=== PATIENT | female | born 1980 | race Caucasian/White ===

== ENCOUNTER 2017-03-03 08:54 | Emergency (ER) | payer MEDICAID ==
--- NOTE | 2017-03-03 10:12 | ED Physician Chart ---
Chief Complaint/HPI - Patient Information Date Seen:: 03/03/17 Time Seen:: 10:07 Chief Complaint:: ABD PAIN INTERMITTANT SINCE MAY 2016 History of Present Illness:: This 36-year-old female presents with pain in the left lower quadrant that has been there since May 2016. currently, she rates the pain as an 8/10 severity. The pain is worse with movement and walking. In May 2016 she had an ultrasound of the abdomen and pelvis that showed a large mass in the left pelvic region. The ultrasound report shows that the mass measured 8.4 x 6.7 cm and was adherent or adjacent to her uterus. The report notes that the mass could be malignant and it urged close follow-up. The patient denies any associated nausea, vomiting or diarrhea. She has no fever, chills, dysuria or urinary frequency. She has had intermittent vaginal bleeding that is sometimes heavy. The study was done at [facility] and her accompanying paperwork notes that her next appointment is scheduled for June 2017. The patient has [employer] insurance and she is not being followed by any primary care physician or shop mechanic. Allergies:: Allergies Allergy/AdvReac Type Severity Reaction Status Date / Time No Known Allergies Allergy Verified 03/03/17 09:14 Vitals:: Vital Signs - 8 hr 03/03/17 09:05 Temp 98.6 F HR 67 RR 16 BP 147/85 O2 Sat % 100 Review of Systems - Review of Systems General/Constitutional: No fever, No chills, No weight loss, No weakness, No diaphoresis, No edema Skin: No skin lesions, No rash Head: No headache, No light-headedness Eyes: No loss of vision, No pain ENT: No earache, No sore throat, No tinnitus Neck: No neck pain, No stiffness, No mass noted Cardio Vascular: No chest pain, No edema GI: No nausea, No vomiting, No diarrhea, Pain G/U: No dysuria, No frequency, 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 Musculoskeletal: Bone or joint pain, Back pain Endocrine: No polyuria, No polydipsia Psychiatric: Prior psych history Hematopoietic: No bruising, No lymphadenopathy Allergic/Immuno: No urticaria, No angioedema Neurological: No syncope, No paresthesia, No seizure, No vertigo Past Medical History - Past Medical History Past Medical History: Other ( The patient denies any other medical problems such as diabetes, hypertension, asthma, or seizure disorder.) Social History: Non Smoker, No Alcohol, No Drug Use, Other ( Lives with her family.) Surgical History: None Psychiatricy History: None Family Medical History - Family Member Mother Other Medical History: denies family medical history Physical Exam - Physical Examination General/Constitutional: Awake, Well-developed, well-nourished, Alert Other Gen/Cons comments:: The patient appeared to be in mild to moderate distress from her complained of abdominal pain. Head: Atraumatic Eyes: Lids, conjuctiva normal, PERRL, EOMI Other Eyes comments:: No jaundice. Skin: Nl inspection, No rash, No ecchymosis Other Skin comments:: No surgical scars on the abdomen. ENMT: External ears, nose nl, Nasal exam nl, Lips, teeth, gums nl, Oropharynx nl , Tonsils nl Neck: Nontender, No nuchal rigidity, No mass Respiratory: Nl effort/Exclusion, Clear to Auscultation, No Wheeze/Rhonchi/Rales Cardio Vascular: RRR, No murmur, gallop, rubs ( Adequate pulses in all four extremities.) Other GI comments:: The abdomen is flat and nondistended. Bowel sounds are normal. On palpation there was a fullness in the left lower quadrant which is accompanied by moderate tenderness to palpation. The patient had no rebound regarding. No pulsatile masses. No hernias. : No CVA tenderness Extremities: No tenderness or effusion, normal strength in all extremities, No edema Neuro/Psych: Alert/oriented, Normal sensory exam, Normal motor strength, Judgement/insight normal, No focal deficits Misc: Normal back, No paraspinal tenderness Labs/Radiology/EKG Results - Lab Results Results: Alter sound of the abdomen and pelvis confirm the presence of a large mass in the left pelvic region. The mass was essentially the same dimensions as noted on the prior report. In addition there was a left ovarian cyst Which measured 7.5 x 4.9 cm. Laboratory Tests 03/03/17 03/03/17 03/03/17 10:10 10:10 10:55 WBC 9.6 RBC 4.49 Hgb 13.1 Hct 38.4 MCV 85.7 MCH 29.1 MCHC Differential 34.0 RDW 14.1 Plt Count 194 MPV 9.5 Neutrophils % 77.8 Lymphocytes % 16.5 L Monocytes % 4.7 Eosinophils % 0.9 Basophils % 0.1 Sodium Potassium Chloride Carbon Dioxide Anion Gap BUN Creatinine Est GFR ( Amer) Est GFR (Non-Af Amer) BUN/Creatinine Ratio Glucose Calcium Total Bilirubin AST ALT Alkaline Phosphatase Total Protein Albumin Globulin Albumin/Globulin Ratio Urine Source RANDOM Urine Color YELLOW Urine Clarity CLEAR Urine pH 7.5 Ur Specific [place] 1.020 Urine Protein NEGATIVE Urine Glucose (UA) NEGATIVE Urine Ketones NEGATIVE Urine Blood MODERATE H Urine Nitrate NEGATIVE Urine Bilirubin NEGATIVE Urine Urobilinogen 0.2 Ur Leukocyte Esterase NEGATIVE Urine RBC 10-25 H Urine WBC 0-2 Ur Epithelial Cells OCCASIONAL Urine Bacteria OCCASIONAL Urine Test NEGATIVE 03/03/17 03/03/17 10:55 11:09 WBC RBC Hgb Hct MCV MCH MCHC Differential RDW Plt Count MPV Neutrophils % Lymphocytes % Monocytes % Eosinophils % Basophils % Sodium 134 L 134 L Potassium 3.8 3.8 Chloride 108 H 108 H Carbon Dioxide 24.6 24.6 Anion Gap 5.2 L 5.2 L BUN 10 10 Creatinine 0.6 0.6 Est GFR ( Amer) > 60.0 > 60.0 Est GFR (Non-Af Amer) > 60.0 > 60.0 BUN/Creatinine Ratio 16.7 16.7 Glucose 101 101 Calcium 9.6 9.6 Total Bilirubin 0.3 AST 22 ALT 20 Alkaline Phosphatase 89 Total Protein 7.7 Albumin 4.2 Globulin 3.5 Albumin/Globulin Ratio 1.2 Urine Source Urine Color Urine Clarity Urine pH Ur Specific [place] Urine Protein Urine Glucose (UA) Urine Ketones Urine Blood Urine Nitrate Urine Bilirubin Urine Urobilinogen Ur Leukocyte Esterase Urine RBC Urine WBC Ur Epithelial Cells Urine Bacteria Urine Test Laboratory studies: the CBC showed no evidence of leukocytosis or anemia. Platelets were within the normal range. Patient had a mild hyponatremia of no clinical significance. Renal function studies were within normal parameters. Liver function studies were within normal parameters. Assessment - Assessment General Assessment: CASE SUMMARY: this 36-year-old female presented with a long history of intermittent abdominal pain in the left lower quadrant. Back in May she had an ultrasound study which showed a large mass in the left pelvic region. The dictated report she had with her mention close follow-up because of the possibility of malignancy. The patient is being followed at [facility] and her next appointment is scheduled for June 2017. The repeat ultrasound which was done today confirm the presence of the mass without significant enlargement. The patient's symptoms were addressed with IV morphine and Zofran. Because our facility has no ASSOCIATE PRODUCT MANAGER service, she was advised to return to [facility] for reevaluation of the pelvic mass. She was given a prescription for Weston 5/325, number 12, to be taken to [facility] for severe pain. She was given the usual precautions regarding mixing it with alcohol and not taking it within six hours of driving or activities requiring mental alertness. The patient was discharged in stable condition. MDM For LEFT LOWER QUADRANT PAIN: NOT UTI Based on results of the urinalysis. NOT Diverticulitis based on the patient's history and physical examination. NOT Ectopic based on the patient's negative test. NOT PID Based on the patient's history and physical exam. ED Septic Shock - . Is Septic Shock (SBP<90, OR Lactate>4 mmol\L) present?: No - <6hrs of presentation: Vital Signs: Vital Signs - 8 hr 03/03/17 09:05 Temp 98.6 F HR 67 RR 16 BP 147/85 O2 Sat % 100 Reassessment (Disposition) - Reassessment Reassessment Condition:: Improved - Diagnosis Diagnosis:: LARGE LEFT PELVIC MASS AND COMPLEX LEFT OVARIAN CYST. - Aftercare/Follow up Instructions Aftercare/Follow-Up Instructions:: Counseled pt & family regarding lab results/ diagnosis & need follow up - Patient Disposition Discharge/Transfer:: Home ED Discharge Plan - Patient Disposition Admit/Discharge/Transfer: PT DISCHARGED HOME Condition at Disposition: Improved Prescriptions: Hydrocodone/Acetaminophen [Weston 5-325 Tablet] 1 each PO Q6HR #10 tablet Instructions: Pelvic Mass Additional Instructions: Follow up with [facility] in 1-2 weeks for further care Accepting Physician: Celestino Epstein [Courtesy] -
[2017-03-03 11:10] LABS: URINE BILIRUBIN NEGATIVE (NEGATIVE); URINE BLOOD MODERATE (NEGATIVE); URINE COLOR YELLOW; URINE GLUCOSE (UA) NEGATIVE (NEGATIVE); URINE KETONE NEGATIVE (NEGATIVE); URINE PH 7.5; URINE PROTEIN NEGATIVE (NEGATIVE); URINE UROBILINOGEN 0.2 E.U./dL (0.2 - 1.0)
[2017-03-03 11:11] LABS: URINE BACTERIA OCCASIONAL /hpf (NONE SEEN); URINE EPITHELIAL CELLS OCCASIONAL /lpf (FEW); URINE WBC 0-2 /hpf (0-5)
[2017-03-03 11:16] LABS: % BASOPHILS 0.1 % (0.0-2.0); % EOSINOPHILS 0.9 % (0.0-5.0); % LYMPHOCYTES 16.5 % (20.0-50.0); % MONOCYTES 4.7 % (2.0-10.0); % NEUTROPHILS 77.8 % (40.0-80.0); HEMATOCRIT 38.4 % (35.0-45.0); HEMOGLOBIN 13.1 gm/dL (11.7-15.5); MEAN CELL VOLUME 85.7 fl (81-100); MEAN CORPUSCULAR HEMOGLOBIN 29.1 pg (27.0-31.0); MEAN PLATELET VOLUME 9.5 fl; NEUTROPHILE ABSOLUTE 7.4 Th/cmm (1.8-8.0); PLATELET COUNT 194 Th/cmm (150-400); RED BLOOD COUNT 4.49 Mil/cmm (3.80-5.10); RED CELL DISTRIBUTION WIDTH 14.1 % (11.5-20.0); WHITE BLOOD COUNT 9.6 Th/cmm (4.8-10.8)
[2017-03-03 12:52] LABS: ANION GAP 5.2 (7.0-16.0); BUN - UREA NITROGEN 10 mg/dL (7-25); BUN/CREATININE RATIO 16.7; CARBON DIOXIDE 24.6 mEq/L (21.0-31.0); CHLORIDE 108 mEq/L (98-107); CREATININE - SERUM 0.6 mg/dL (0.6-1.2); GLUCOSE 101 mg/dL (70-105); POTASSIUM SERUM 3.8 mEq/L (3.5-5.1); SODIUM SERUM 134 mEq/L (136-145)
[2017-03-03 12:53] LABS: CALCIUM SERUM 9.6 mg/dL (8.6-10.3)
[2017-03-03 13:03] LABS: ALB/GLOB RATIO 1.2 (1.0-1.8); ALKALINE PHOSPHATASE 89 U/L (34-104); BILIRUBIN,TOTAL 0.3 mg/dL (0.3-1.0); SGOT 22 U/L (13-39); SGPT/ALT 20 U/L (7-52)
--- NOTE | 2017-03-04 09:57 | Diagnostic Imaging Report ---
Pelvic ultrasound HISTORY: Pain Transabdominal and transvaginal sonographic technique was utilized. There is an enlarged uterus (13.1 x 7.8 x 8.7 cm). There is an approximate 7.4 cm round heterogeneous density that occupies a significant portion of the uterus. Findings probably related to fibroid formation. Obscuration of the endometrium. The right ovary measures 2.2 x 1.6 x 1.6 cm. This is due to some lucencies thick lesions. The largest measures 1.2 cm. The left ovary appears to be enlarged (8.5 x 6.6 x 7.1 cm). This is associated with an approximately 7.0 cm complex sonolucent cystic lesion with low-level internal echoes. Exact etiology is indeterminate. In view the size, eSCAN is recommended for further assessment. No free fluid in the pelvis. IMPRESSION: 1. Left ovarian enlargement associated with an approximate 7.0 cm complex cystic mass. In view of the size, etiology is uncertain. A somewhat homogeneous appearance may be associated with endometriosis. Inflammatory or neoplastic etiology cannot be definitely excluded. A CT scan would provide additional characterization. 2. Abnormal enlarged uterus that appears related to fibroid formation.
== END 2017-03-03 13:20 | disposition home or self-care (01) ==
LOC: ER 08:54
DX: R19.00 Intra-abdominal and pelvic swelling, mass and lump, unspecified site (principal); N83.202 Unspecified ovarian cyst, left side
CPT/HCPCS: 36415-UA; 76856-TC; 80048-TC; 80053-TC; 81001-TC; 81025-TC; 85025-TC